=== PATIENT | female | born 1990 | race Caucasian/White ===

== ENCOUNTER → 2020-05-05 13:48 | Outpatient (CLI) | payer OTHER, SELFPAY ==
[2020-05-06 11:10] LABS: COVID19 -Nasal RAPID Negative (Negative)
== END ==
PROVIDERS: PCP Family Medicine; Visit Provider Physician Assistant
DX: Z11.59 Encounter for screening for other viral diseases (principal)
CPT/HCPCS: 87635

== ENCOUNTER 2020-05-08 11:25 | Day surgery (SDC) | payer OTHER, SELFPAY ==
[2020-05-08] VITALS (8 sets, daily range): BP systolic 98–113; BP diastolic 61–78; PULSE 69–87; RESP 10–19; TEMP 36.2–36.6; O2SAT 96–99; BMI 25.2
--- NOTE | 2020-05-08 | PATH_ITS ---
[facility] Accession Number: [id number] . 01 Material submitted: . PART A: small bowel - SMALL BOWEL PART B: gastrointestinal site - GASTRIC BIOPSY PART C: esophagus - PROXIMAL/DISTAL ESOPHAGUS . 01 Clinical history: . A: R/O SPRUE B: R/O H.PYLORI C: R/O EOE . 02 Diagnosis: A. Small Bowel, Biopsy: Duodenal mucosa with no diagnostic abnormality. Negative for active inflammation, features of sprue, dysplasia, or malignancy. . B. Stomach, Biopsy: Gastric antral mucosa with mild chronic inflammation. Negative for Helicobacter organisms by immunohistochemistry. Negative for intestinal metaplasia. Negative for dysplasia or malignancy. . C. Proximal, Distal Esophagus, Biopsies: Squamous mucosa with increased intraepithelial eosinophils (greater than 50 per high powered field). See comment. Fragments of proximal gastric mucosa with no diagnostic abnormality. Negative for specialized intestinal metaplasia or fungal organisms on AB/PAS stain. Negative for dysplasia or malignancy. [facility] 05/15/2020 1638 Local . 02 Comment: C. In the proper clinical setting, the histopathologic appearance would support a clinical impression of eosinophilic esophagitis. The differential diagnosis includes drug reaction, gastroesophageal reflux, and food allergies. . . 02 Electronically signed: . Que Deleon MD, PhD, Pathologist NPI- [id number] . 01 Gross description: . A. Received in formalin, labeled small bowel, and consists of two gastelum fragments of soft tissue measuring 0.5 x 0.5 x 0.3 cm in aggregate. The specimen is entirely submitted in cassette A1. B. Received in formalin, labeled gastric, and consists of three gastelum fragments of soft tissue measuring 0.6 x 0.5 x 0.2 cm in aggregate. The specimen is entirely submitted in cassette B1. C. Received in formalin, labeled proximal/distal esophagus, and consists of four gastelum-white fragments of soft tissue measuring 0.6 x 0.6 x 0.2 cm in aggregate. The specimen is entirely submitted in cassette C1. (EA:[id number]) /MRV 05/09/[address] [place] [address] . 02 Microscopic: . B. An immunohistochemical stain was performed to evaluate for Helicobacter organisms and is negative. The control stain showed appropriate reactivity. . . C. An AB/PAS stain is negative for specialized intestinal metaplasia or fungal organisms. A control stain shows appropriate reactivity. . * This test was developed and its performance characteristics determined by [employer]. It has not been cleared or approved by the U.S. Food and Drug Administration. The FDA has determined that such clearance or approval is not necessary. This test is used for clinical purposes. It should not be regarded as investigational or for research. . 02 Pathologist provided ICD-10: R10.11, K29.70, K20.0 . 02 CPT . 291904, 472484, 008165, F46555, 564530 Performed at: 01 [facility] [address] [id number] MD Caleb Dahl MD Phone: [phone] Performed at: 02 [facility] [address] [place] [id number] MD Ebony Mcleod MD Phone: [phone]
[2020-05-08] MEDS: SODIUM CHLORIDE 0.9% 1,000 ML 70 ML IV (12:05)
--- NOTE | 2020-05-08 12:37 | PM.HP.1 ---
History of Present Illness History of Present Illness Date Patient Seen: 05/08/20 Time Patient Seen: 12:37 Chief complaint: EGD Narrative: Patient is a pleasant 29-year-old female who presented for upper endoscopy. She was last evaluated on April 18, 2020. Since that time she has continued to have persistent symptoms of right upper quadrant abdominal pain. Patient History Surgical History (Updated 05/08/20 @ 12:38 by Nettie Morley DO) History of tonsillectomy (Acute) Family & Social History Social History: household members spouse Tobacco & Substance use: Smoking Status Never smoker alcohol intake frequency holiday/special occasion Substance Use Type does not use Meds Home Medications and Allergies Allergies Allergy/AdvReac Type Severity Reaction Status Date / Time amoxicillin Allergy Severe Hives Verified 05/08/20 11:33 Review of Systems Review of Systems ROS: Yes All systems reviewed with the patient and are negative except as otherwise documented Exam Vital Signs (past 8 hours): - 05/08/20 11:35 Temperature 97.8 F Pulse Rate 81 Respiratory Rate 16 Blood Pressure 113/78 Pulse Oximetry 98 Oxygen Delivery Method Room Air Const General: cooperative, healthy appearing, comfortable, well developed and well groomed Nutritional Appearance: average body habitus and well nourished Orientation: alert, awake and oriented x3 HENMT Head: normocephalic and atraumatic Resp Effort & Inspection: normal respiratory effort and able to speak in complete sentences Auscultation: clear to auscultation bilaterally Cardio Rate: regular rate Rhythm: regular rhythm Heart Sounds: S1 normal and S2 normal GI Palpation: soft Auscultation: normal bowel sounds Extrem Right lower extremity: no edema Left lower extremity: no edema Assessment & Plan Assessment & Plan narrative: 1. Right upper quadrant abdominal pain EGD today, further recommendations to follow
[2020-05-08] MEDS: MIDAZOLAM 5 MG/5 ML VIAL IV (13:04)
[2020-05-08] MEDS: fentaNYL 250 MCG/5 ML INJ IV (13:04)
[2020-05-08] MEDS: LIDOCAINE 4% SOLN 50 ML 20 ML TOP (13:06)
--- NOTE | 2020-05-08 13:06 | PM.OP.ENDO ---
Operative Date/Time/Diagnoses Date of procedure: 05/08/20 Time of procedure: 12:54 Procedure Notes Procedure in detail: Surgeon: Nettie Morley DO Procedure: Esophagogastroduodenoscopy with biopsy Preoperative diagnosis: 1. Right quadrant abdominal pain Postoperative diagnosis: 1. Changes of esophageal mucosa suspicious for eosinophilic esophagitis, biopsied 2. Medium-sized hiatal hernia 3. Normal appearing gastric mucosa, biopsied for H.pylori 4. Normal-appearing small bowel biopsy for celiac sprue Medications: Conscious sedation using 4 mg IV of Midazolam and 100 mcg IV of Fentanyl, lidocaine gargle Preanesthesia Assessment An H and P was performed/updated and the Px?s ASA class is 1. The procedure was discussed in detail with the patient. The potential risks and complications including infection, bleeding, missed lesions, perforation, need for surgery in case of perforation, prolonged hospital stay, and were explained. A brief question and answer period was allotted and once all questions were answered, informed consent was obtained. The patient was brought back to the procedure room and placed on standard monitoring. The patient?s vital signs were monitored continuously throughout the entire procedure. Prior to starting, a timeout was performed to confirm the patient?s identity, allergies, medications, and procedure. Procedure in detail The patient was placed in left lateral decubitus position and a bite block was inserted. The tip of the upper endoscope was placed into the mouth and advanced without difficulty under direct visualization into the esophagus. Esophagus: Esophageal mucosa changes suspicious for eosinophilic esophagitis, biopsied Stomach: Medium size hiatal hernia Normal appearing gastric mucosa, biopsy to rule out H pylori infection Duodenum: Normal-appearing small bowel mucosa, biopsied to rule out celiac sprue The patient tolerated the procedure well and will be brought back to the recovery area to be discharged once criteria are met. The total physician intraservice time was 8min. Complications There were no complications and estimated blood loss was minimal. Recommendations: Resume previous diet Continue outPx medications Follow up pathology results Office follow up to be scheduled An emergency contact number was given to the patient for any complications related to the procedure
== END 2020-05-08 14:05 | disposition home or self-care (01) ==
PROVIDERS: PCP Family Medicine; Referring Provider Student in an Organized Health Care Education/Training Program; Visit Provider Student in an Organized Health Care Education/Training Program
PROC: 0DJ08ZZ Inspection of Upper Intestinal Tract, Via Natural or Artificial Opening Endoscopic (ICD-10-PCS; CPT 43235; principal; 2020-05-08 12:30)
DX: K29.50 Unspecified chronic gastritis without bleeding (principal); K44.9 Diaphragmatic hernia without obstruction or gangrene; K20.0 Eosinophilic esophagitis
CPT/HCPCS: 43239; J2250; J3010

== ENCOUNTER → 2020-06-12 07:42 | Outpatient (CLI) | payer OTHER, SELFPAY ==
--- NOTE | 2020-06-12 | DI.NM.S_ITS ---
PROCEDURE: NM HIDA WITH CCK PHARMACEUTICAL: 5.2 mCi Tc-99m mebrofenin IV; 1.3 mcg CCK IV. INDICATIONS: RIGHT UPPER QUADRANT PAIN TECHNIQUE: Following intravenous administration of Tc-99m mebrofenin, sequential anterior abdominal images were obtained. To evaluate the contractile response of the gallbladder in response to Cholecystokinin (CCK), sincalide (0.02 ?g/kg) was administered by slow intravenous infusion approximately 60 minutes after the administration of the radiopharmaceutical. Sequential imaging was continued for 30 minutes after the start of CCK infusion. Gallbladder ejection fraction was calculated. COMPARISON: None. FINDINGS: Biliary scan: There is normal tracer uptake and excretion by the liver. There is normal visualization of the intrahepatic ducts, common bile duct, and gallbladder. There is normal tracer transit into the duodenum. CCK stimulation: There is normal contractile response of the gallbladder to CCK infusion. The calculated gallbladder ejection fraction is 96% ; normal values are above 35%. It has been shown that any patient abdominal pain after CCK administration is related to the rate of CCK injection, rather than to any underlying gallbladder disease (Clinical Nuclear Medicine 2012; 37: 63-70. Journal of Nuclear Medicine 2014; 55: 1-9). IMPRESSION: Normal hepatocellular uptake and excretion of the radioisotope, normal gallbladder ejection fraction of 96%. Dictated by: Robbin Brown M.D. on 06/12/2020 at 11:43 Approved by: Robbin Brown M.D. on 06/12/2020 at 11:43
== END ==
PROVIDERS: PCP Family Medicine; Referring Provider Internal Medicine Gastroenterology; Visit Provider Internal Medicine Gastroenterology
DX: R10.11 Right upper quadrant pain (principal)
CPT/HCPCS: 78227; A9537; J2805

== ENCOUNTER → 2021-08-01 07:40 | Outpatient (CLI) | payer OTHER, SELFPAY ==
--- NOTE | 2021-08-01 | DI.MRI.S_ITS ---
PROCEDURE: MR HAND LT WO CON INDICATIONS: Laceration of intrinsic muscle, left thumb TECHNIQUE: Noncontrast coronal T1 spin echo and T2 fast spin echo with fat saturation, axial proton density fast spin echo and T2 fast spin echo with fat saturation, sagittal T1 spin echo and STIR through the hand and fingers. COMPARISON: None. FINDINGS: Image quality: Excellent. Bones: The bones are normally aligned, without marrow contusions or fractures. No intra-osseous lesions. Interphalangeal joint(s): The accessory and proper collateral ligaments appear intact. The volar plate demonstrates normal morphology. The extensor central slips appear intact on sagittal images. Metacarpophalangeal joint(s): At least partial tear of the 1st metacarpophalangeal joint, ulnar collateral ligament. The remaining collateral ligaments appear intact, as well as the volar plate and adjacent deep transverse metacarpal ligaments. The sagittal bands of the extensor corrigan appear normal. Extensor apparatus: The central slips insert normally on the middle phalangeal base. The conjoint and terminal tendons insert normally on the distal phalangeal bases. More proximal portions of the extensor tendons also appear normal. Flexor apparatus: The flexor digitorum superficialis and profundus tendons both appear intact. All annular and cruciform pulleys appear intact, without adjacent soft tissue edema. Soft tissues: Visualized muscles demonstrate normal bulk and internal signal. No intramuscular mass is identified. No ganglion cysts. T2 hyperintense signal within the thenar eminence extending adjacent to the flexor pollicis longus tendon, compatible with a known history of laceration/injury. IMPRESSION: At least partial tear of the 1st metacarpophalangeal joint, ulnar collateral ligament. Dictated by: Devon Lim M.D. on 08/01/2021 at 9:10 Approved by: Devon Lim M.D. on 08/01/2021 at 9:35
== END ==
PROVIDERS: PCP Family Medicine; Referring Provider Orthopaedic Surgery; Visit Provider Orthopaedic Surgery
DX: S66.422A Laceration of intrinsic muscle, fascia and tendon of left thumb at wrist and hand level, initial encounter (principal); X58.XXXA Exposure to other specified factors, initial encounter
CPT/HCPCS: 73218